=== PATIENT | female | born 1985 | race Caucasian/White ===

== ENCOUNTER → 2016-08-16 | Outpatient (REF) | payer BC | LOC: M SFHCLERA 09:57 | PROVIDERS: ATTEND Nurse Practitioner Family | DX: R50.9 Fever, unspecified (principal); J02.9 Acute pharyngitis, unspecified ==

== ENCOUNTER 2018-04-30 10:27 | Emergency (ER) | payer BC ==
[~2018-04-30] VITALS: Ht 167.6 cm; Wt 81.4 kg
[2018-04-30] MEDS ORDERED: NORCO, ANEXSIA 5/325MG TABLET (HYDROcodone/ACETAMINOPHEN) PO ONE (11:00)
[2018-04-30] MEDS ORDERED: KETOROLAC 30 MG/ML VIAL (J1885) IV ONE (12:30)
[2018-04-30 12:50] LABS: BASO # 0.1 10^3/uL (0.0-0.2); BASO % 0.6 % (0.0-1.0); EOS # 0.1 10^3/uL (0.0-0.50); EOS % 1.4 % (0.0-3.0); HEMOGLOBIN 13.1 g/dl (12.0-15.5); LYMPH # 1.7 10^3/uL (1.5-4.5); LYMPH % 16.9 % (24.0-44.0); MEAN CORPUSCULAR HEMOGLOBIN 30.8 pg (27.0-33.0); MEAN CORPUSCULAR HGB CONC 33.6 g/dl (32.0-36.5); MEAN CORPUSCULAR VOLUME 91.5 fl (80.0-96.0); MONO # 0.6 10^3/uL (0.0-0.8); MONO % 5.8 % (0.0-5.0); NEUTROPHILS # 7.6 10^3/uL (1.8-7.7); NEUTROPHILS % 74.9 % (36.0-66.0); PLATELET COUNT, AUTOMATED 224 10^3/uL (150-450); RED BLOOD COUNT 4.26 10^6/uL (4.00-5.40); WHITE BLOOD COUNT 10.2 10^3/uL (4.0-10.0)
--- NOTE | 2018-04-30 13:03 | REP ---
The CT of the abdomen pelvis without IV and oral contrast for left ureteral calculus: There are no comparisons. There is hafsa 3 mm calculus in the distal left ureter near the urinary bladder. There is left hydroureter and hydronephrosis. No left perinephric stranding. There are no right renal or ureteral calculi. There are no bladder calculi. There are phleboliths in the pelvis on the right. The visualized lung knox are unremarkable. The hepatic parenchyma, gallbladder, pancreas, spleen and adrenals are unremarkable. The abdominal aorta is unremarkable. Are unremarkable. Pelvis: The uterus and adnexa are unremarkable. The appendix is unremarkable. There is no adenopathy or ascites. Impression: Distal left ureteral calculus as described. There are phleboliths in the pelvis on the right. Electronically Signed by Dante Dorantes MD 04/30/2018 12:55 P
[2018-04-30 13:15] LABS: BLOOD UREA NITROGEN 11 MG/DL (7-18); CALCIUM LEVEL 8.9 MG/DL (8.5-10.1); CARBON DIOXIDE LEVEL 26 MEQ/L (21-32); CHLORIDE LEVEL 108 MEQ/L (98-107); CREATININE FOR GFR 0.92 MG/DL (0.55-1.30); GLOMERULAR FILTRATION RATE > 60.0 (>60); GLUCOSE, FASTING 89 MG/DL (70-100); POTASSIUM SERUM 4.4 MEQ/L (3.5-5.1); SODIUM LEVEL 140 MEQ/L (136-145)
[2018-04-30] MEDS ORDERED: ONDA4TAB6 PO (13:36)
[2018-04-30] MEDS ORDERED: BACT800T5 PO (13:36)
[2018-04-30] MEDS ORDERED: NORCOTAB PO (13:36)
[2018-04-30] MEDS ORDERED: IBUP80TA PO (13:36)
[2018-04-30 13:52] VITALS: BP 130/71
--- NOTE | 2018-04-30 14:53 | REP ---
RENAL AND BLADDER ULTRASOUND: Real-time sonographic evaluation of kidneys performed. Kidneys are normal in size and echotexture, right kidney measuring 12.9 x 4.7 x 5.4 cm, and left kidney 13.0 x 4.8 x 6.3 cm. There is no mild left hydronephrosis. No renal stones are visualized sonographically. I see no renal mass. Urinary bladder is mildly distended. With Doppler color evaluation, a right ureteral jet is seen. A left ureteral jet is not visualized during extensive observation. No intrabladder calculus is seen. IMPRESSION: Mild left hydronephrosis. No left ureteral jet visualized. Findings are compatible with some degree of left ureteral obstruction. Electronically Signed by Dante Silva MD 04/30/2018 11:47 P
== END 2018-04-30 13:58 | disposition home or self-care (01) ==
LOC: M ED 10:27
DX: N13.1 Hydronephrosis with ureteral stricture, not elsewhere classified (principal); E28.2 Polycystic ovarian syndrome; Z88.0 Allergy status to penicillin
CPT/HCPCS: 74176; 76775; 80048; 81001; 81025; 85025; 87086; 96374; 99284; J1885

== ENCOUNTER → 2018-09-10 | Outpatient (REF) | payer BC ==
[~2018-09-10] MED LIST: BACT800T5 PO; HYDR-3715 PO; IBUP80TA PO; ONDA4TAB6 PO
[2018-09-10 14:44] LABS: BASO # 0.1 10^3/uL (0.0-0.2); BASO % 0.7 % (0.0-1.0); EOS # 0.1 10^3/uL (0.0-0.50); EOS % 1.7 % (0.0-3.0); HEMATOCRIT 40.9 % (36.0-47.0); HEMOGLOBIN 13.6 g/dl (12.0-15.5); LYMPH # 1.7 10^3/uL (1.5-4.5); LYMPH % 22.2 % (24.0-44.0); MEAN CORPUSCULAR HEMOGLOBIN 31.1 pg (27.0-33.0); MEAN CORPUSCULAR HGB CONC 33.3 g/dl (32.0-36.5); MEAN CORPUSCULAR VOLUME 93.4 fl (80.0-96.0); MONO # 0.6 10^3/uL (0.0-0.8); MONO % 7.7 % (0.0-5.0); NEUTROPHILS # 5.2 10^3/uL (1.8-7.7); NEUTROPHILS % 67.4 % (36.0-66.0); PLATELET COUNT, AUTOMATED 228 10^3/uL (150-450); RED BLOOD COUNT 4.38 10^6/uL (4.00-5.40); WHITE BLOOD COUNT 7.7 10^3/uL (4.0-10.0)
[2018-09-10 14:45] LABS: APPEARANCE, URINE CLEAR (CLEAR); BACTERIA, URINE AUTO NEGATIVE (NEGATIVE); BILIRUBIN, URINE AUTO NEGATIVE (NEGATIVE); BLOOD, URINE BLOOD 2+ (NEGATIVE); COLOR, URINE STRAW (YELLOW); GLUCOSE, URINE (UA) AUTO NEGATIVE (NEGATIVE); KETONE, URINE AUTO NEGATIVE (NEGATIVE); LEUKOCYTE ESTERASE, URINE AUTO NEGATIVE (NEGATIVE); NITRITE, URINE AUTO NEGATIVE (NEGATIVE); PROTEIN, URINE AUTO NEGATIVE (NEGATIVE); RBC, URINE AUTO 4 /HPF (0-3); SPECIFIC GRAVITY URINE AUTO 1.009 (1.002-1.035); SQUAMOUS EPITHELIAL CELL UR AU 1 /HPF (0-6); UROBILINOGEN, URINE AUTO 0.2 mg/dL (0.0-2.0); WBC, URINE AUTO 1 /HPF (0-3)
[2018-09-10 14:52] LABS: INR 0.93; PROTHROMBIN TIME 12.2 SECONDS (11.8-14.0)
[2018-09-10 14:53] LABS: PARTIAL THROMBOPLASTIN TIME 28.3 SECONDS (25.0-38.4)
[2018-09-10 14:54] LABS: ALBUMIN 4.1 GM/DL (3.2-5.2); ALT/SGPT 30 U/L (12-78); BILIRUBIN,TOTAL 0.2 MG/DL (0.2-1.0); BLOOD UREA NITROGEN 17 MG/DL (7-18); CALCIUM LEVEL 8.9 MG/DL (8.5-10.1); CARBON DIOXIDE LEVEL 27 MEQ/L (21-32); CHLORIDE LEVEL 108 MEQ/L (98-107); CREATININE FOR GFR 0.61 MG/DL (0.55-1.30); GLOMERULAR FILTRATION RATE > 60.0 (>60); GLUCOSE, FASTING 89 MG/DL (70-100); IRON (FE) 132 UG/DL (50-170); POTASSIUM SERUM 4.3 MEQ/L (3.5-5.1); SODIUM LEVEL 142 MEQ/L (136-145); THYROID STIMULATING HORMONE 0.988 uIU/ML (0.358-3.740); TOTAL PROTEIN 6.9 GM/DL (6.4-8.2)
[2018-09-13 00:07] LABS: Lyme Disease IgG Ab 18 kDa Ban Absent (.); Lyme Disease IgG Ab 23 kDa Ban Absent (.); Lyme Disease IgG Ab 28 kDa Ban Absent (.); Lyme Disease IgG Ab 30 kDa Ban Absent (.); Lyme Disease IgG Ab 39 kDa Ban Absent (.); Lyme Disease IgG Ab 41 kDa Ban Absent (.); Lyme Disease IgG Ab 45 kDa Ban Absent (.); Lyme Disease IgG Ab 58 kDa Ban Absent (.); Lyme Disease IgG Ab 66 kDa Ban Absent (.); Lyme Disease IgG Ab 93 kDa Ban Absent (.); Lyme Disease IgG West Blot Int Negative (.); Lyme Disease IgG/IgM Antibodie <0.91 ISR (0.00-0.90); Lyme Disease IgM Ab 23 kDa Ban Absent (.); Lyme Disease IgM Ab 39 kDa Ban Absent (.); Lyme Disease IgM Ab 41 kDa Ban Absent (.); Lyme Disease IgM Ab Quantitati 2.53 index (0.00-0.79); Lyme Disease IgM West Blot Int Negative (.)
== END ==
LOC: M SFHCLERA 11:43
PROVIDERS: ATTEND Physician Assistant
DX: R31.9 Hematuria, unspecified (principal)

== ENCOUNTER 2018-09-14 12:39 | Emergency (ER) | payer BC ==
[~2018-09-14] VITALS: Ht 167.6 cm; Wt 83.2 kg
[2018-09-14 13:34] LABS: BASO # 0.1 10^3/uL (0.0-0.2); BASO % 0.5 % (0.0-1.0); EOS # 0.2 10^3/uL (0.0-0.50); EOS % 2.5 % (0.0-3.0); HEMATOCRIT 39.9 % (36.0-47.0); HEMOGLOBIN 13.1 g/dl (12.0-15.5); LYMPH # 2.1 10^3/uL (1.5-4.5); LYMPH % 22.7 % (24.0-44.0); MEAN CORPUSCULAR HEMOGLOBIN 30.3 pg (27.0-33.0); MEAN CORPUSCULAR HGB CONC 32.8 g/dl (32.0-36.5); MEAN CORPUSCULAR VOLUME 92.4 fl (80.0-96.0); MONO # 0.6 10^3/uL (0.0-0.8); MONO % 5.9 % (0.0-5.0); NEUTROPHILS # 6.3 10^3/uL (1.8-7.7); NEUTROPHILS % 68.1 % (36.0-66.0); PLATELET COUNT, AUTOMATED 234 10^3/uL (150-450); RED BLOOD COUNT 4.32 10^6/uL (4.00-5.40); WHITE BLOOD COUNT 9.3 10^3/uL (4.0-10.0)
[2018-09-14 13:46] LABS: INR 0.99; PROTHROMBIN TIME 12.8 SECONDS (11.8-14.0)
[2018-09-14 14:03] LABS: BLOOD UREA NITROGEN 13 MG/DL (7-18); CALCIUM LEVEL 9.2 MG/DL (8.5-10.1); CARBON DIOXIDE LEVEL 28 MEQ/L (21-32); CHLORIDE LEVEL 110 MEQ/L (98-107); CREATININE FOR GFR 0.73 MG/DL (0.55-1.30); GLOMERULAR FILTRATION RATE > 60.0 (>60); GLUCOSE, FASTING 91 MG/DL (70-100); POTASSIUM SERUM 4.8 MEQ/L (3.5-5.1); SODIUM LEVEL 142 MEQ/L (136-145)
[2018-09-14 15:55] LABS: FREE T3 3.1 PG/ML (2.2-4.0); FREE T4 0.87 NG/DL (0.76-1.46)
[2018-09-14 16:10] LABS: COLLAGEN ADP 116 SECONDS (56-103); COLLAGEN EPINEPHRINE > 300 SECONDS (74-162)
[2018-09-14] MEDS ORDERED: ACETAMINOPHEN 500 MG TAB PO ONE (16:15)
--- NOTE | 2018-09-14 16:20 | REP ---
Clinical: Right lower extremity trauma/bruising and calf pain . Technique: Silva scale and color Doppler evaluation using linear high frequency transducer. Findings: Ultrasound examination of the right lower extremity deep venous structures from the common femoral vein to the popliteal vein demonstrates normal compressibility flow and wave patterns in response to respiration and augmentation. There is no evidence for deep venous thrombosis. Impression: No evidence for deep venous thrombosis. Electronically Signed by Momo Gutierres MD 09/14/2018 04:11 P
--- NOTE | 2018-09-14 16:21 | REP ---
Clinical: Paresthesia . Technique: AP, lateral, flexion/extension, bilateral oblique, and open-mouth views. Findings: Alignment is maintained. There is no evidence for acute fracture / compression injury or subluxation. Oblique views demonstrate patent neural foramen. Open mouth view demonstrates normal C1-C2 articulation and odontoid process. Mild degenerative changes with endplate sclerosis, minimal disc space narrowing and subtle marginal spurring at C6-7. Impression: Mild focal degenerative changes at C6/7. Electronically Signed by Momo Gutierres MD 09/14/2018 04:13 P
--- NOTE | 2018-09-14 16:23 | REP ---
Lumbar spine five views: Comparison is the abdomen pelvis CT dated 04/30/2018. There is mild anterior wedging of the L2 vertebral body. This is unchanged and could be congenital or post-traumatic. Vertebral body heights are otherwise normal and unchanged. Vertebral alignment is normal. Vertebral interspacing is normal. There is no spondylolysis. There is no spondylolisthesis. The pedicles, facets and sacroiliac articulations are unremarkable. Impression: Chronic mild anterior wedging of the L2 vertebral body, congenital versus post-traumatic, unchanged. Otherwise, negative lumbar spine. Electronically Signed by Dante Dorantes MD 09/14/2018 04:15 P
[2018-09-14 16:44] VITALS: BP 145/86
== END 2018-09-14 16:52 | disposition home or self-care (01) ==
LOC: M ED 12:39
DX: R23.3 Spontaneous ecchymoses (principal); M50.323 Other cervical disc degeneration at C6-C7 level; R20.9 Unspecified disturbances of skin sensation; E28.2 Polycystic ovarian syndrome; Z87.442 Personal history of urinary calculi; F17.200 Nicotine dependence, unspecified, uncomplicated; Z88.0 Allergy status to penicillin; Z88.8 Allergy status to other drugs, medicaments and biological substances; Z91.040 Latex allergy status